=== PATIENT | female | born 1990 | race Caucasian/White ===

== ENCOUNTER 2018-05-07 18:25 | Inpatient (IN) | payer OTHER ==
[2018-05-07] MEDS ORDERED: LIDOCAINE 1% 300 MG/30 ML SDV SC PRN (19:00)
[2018-05-07] MEDS ORDERED: LR 1,000 ML IV PRN (19:00)
[2018-05-07] MEDS ORDERED: OXYTOCIN/RINGERS LACTATE 1,000 ML IV PRN (19:00)
[2018-05-07] MEDS ORDERED: OLIVE OIL 118 ML BTL MISC PRN (19:00)
[2018-05-07] MEDS ORDERED: TERBUTALINE SULFATE 1 MG/ML VIAL IV PRN (19:00)
[2018-05-07] MEDS ORDERED: MISOPROSTOL 200 MCG TAB PR PRN (19:00)
[2018-05-07] MEDS ORDERED: IBUPROFEN 600 MG TAB PO PRN (19:00)
[2018-05-07] MEDS ORDERED: EPSOM SALT 454 GM TP PRN (19:00)
[2018-05-07 19:17] LABS: PLATELET COUNT 205 10^3/uL (150-400)
[2018-05-07] MEDS ORDERED: TERBUTALINE SULFATE 1 MG/ML VIAL ONE (19:38)
[2018-05-07] MEDS ORDERED: OLIVE OIL 118 ML BTL ONE (19:38)
[2018-05-07] MEDS ORDERED: LIDOCAINE 1% 300 MG/30 ML SDV ONE (19:38)
[2018-05-07] MEDS ORDERED: AMMONIA AROMATIC 1 EACH AMP IH ONE (19:38)
[2018-05-07] MEDS ORDERED: MISOPROSTOL 200 MCG TAB ONE (19:39)
[2018-05-07] MEDS ORDERED: OXYTOCIN 10 UNIT/ML VIAL ONE (19:39)
[2018-05-07] MEDS ORDERED: fentaNYL 200 MCG, BUPIVACAINE 0.5% 20 ML in NS 100 ML EP SCH (20:30)
[2018-05-07] MEDS ORDERED: PHENYLEPHRINE HCL 100 MCG/ML SYR IVP PRN (20:48)
[2018-05-07] MEDS ORDERED: ONDANSETRON 4 MG/2 ML VIAL IVP PRN (20:48)
--- NOTE | 2018-05-07 20:48 | PREANESOB ---
Obstetric Pre-Anesthesia Info - General Info Proposed Procedure: labor epidural : 2 Para: 0 SOLO: 05/15/18 Gestational Age: 38 week(s) and 6 day(s) Anesthesia Allergies/Adverse Reactions: Allergy/AdvReac Type Severity Reaction Status Date / Time Sulfa (Sulfonamide Allergy Verified 05/07/18 18:41 Antibiotics) Home Medications: Medication Instructions Recorded Ferrous Sulfate [Iron] 85 mg PO 05/07/18 Vit27&Calcium/Iron/FA 1 each PO DAILY 05/07/18 [ Rx 1 Tablet (RX)] Visit Medications: Generic Name Dose Route Start Last Admin Trade Name Freq PRN Reason Stop Dose Admin Lactated Ringer's 1,000 mls @ 0 mls/hr 05/07/18 19:00 Lr IV 05/08/18 18:59 PRN PRN SEE PROTOCOL CONDITIONS Protocol Per Protocol Oxytocin/Lactated Ringer's 1,000 mls @ 125 mls/hr 05/07/18 19:00 Pitocin 20 Units/Lr (Premix) IV PRN PRN Post bleeding Fentanyl 200 mcg/ Bupivacaine 100 mls @ 0 mls/hr 05/07/18 20:30 HCl 20 ml/ Sodium Chloride EP 05/17/18 20:29 CONT CECILLE Protocol As Directed Ibuprofen 600 mg 05/07/18 19:00 Motrin PO ONCE PRN post , pain Lidocaine HCl 300 mg 05/07/18 19:00 Lidocaine Hcl 1% SC 11/03/18 18:59 ONCE PRN episiotomy Magnesium Sulfate 454 gm 05/07/18 19:00 Epsom Salt TP 11/03/18 18:59 Q1H PRN perineal discomfort Misoprostol 800 - 1,000 mcg 05/07/18 19:00 Cytotec MS ONCE PRN Vaginal Atony/Bleeding [place] Oil 118 ml 05/07/18 19:00 Sweet Oil MISC 11/03/18 18:59 ONCE PRN perineal massage Terbutaline Sulfate 0.25 mg 05/07/18 19:00 Brethine IV 11/03/18 18:59 ONCE PRN Tachysystole Discontinued Medications Generic Name Dose Route Start Last Admin Trade Name Freq PRN Reason Stop Dose Admin Ammonia (Aromatic Spirit) Confirm 05/07/18 19:38 Ammonia Aromatic Administered 05/07/18 19:39 Dose 1 each IH .STK-MED ONE Lidocaine HCl Confirm 05/07/18 19:38 Lidocaine Hcl 1% Administered 05/07/18 19:39 Dose 300 mg .ROUTE .STK-MED ONE Misoprostol Confirm 05/07/18 19:39 Cytotec Administered 05/07/18 19:40 Dose 1,000 mcg .ROUTE .STK-MED ONE [place] Oil Confirm 05/07/18 19:38 Sweet Oil Administered 05/07/18 19:39 Dose 118 ml .ROUTE .STK-MED ONE Oxytocin Confirm 05/07/18 19:39 Pitocin Administered 05/07/18 19:40 Dose 40 unit .ROUTE .STK-MED ONE Terbutaline Sulfate Confirm 05/07/18 19:38 Brethine Administered 05/07/18 19:39 Dose 1 mg .ROUTE .STK-MED ONE - Vital Signs Height/Weight (Nursing): Height 160.02 cm Weight 77.564 kg - Focused Exam Neck exam: FROM Mallampati Score: Class 2 Mouth exam: normal dental/mouth exam Pulmonary: no respiratory distress Cardiovascular: regular rate and rhythym Labs: 05/07/18 19:00 Patient ABO/Rh O POSITIVE 05/07/18 19:00 - Plan Consent Signed and on Chart: Yes Patient/Guardian Understands and Agrees to Plan: Yes Urgent/Emergent Case: Jose ko completed preop but documented later for safe timely pt care
[2018-05-07] MEDS ORDERED: fentaNYL 2MCG/ML/BUP 0.1% RTU 100 ML EP SCH (21:00)
[2018-05-07] MEDS ORDERED: LR 500 ML IV SCH (21:00)
[2018-05-07] MEDS ORDERED: LR 500 ML IV PRN (22:36)
--- NOTE | 2018-05-07 22:47 | OBPROG ---
Labor Progress Note Assessment/Plan: Assessment: Plan: 05/07/18 22:37 Subjective/Intrapartum Course: 05/07/18 22:46 patient is comfortable with epidural. initial epidural only worked on one side. on further discussion patient has spina bifida. anesthesia placed a thoracic epidural and pain has been well controlled. contractions have spaced since epidural. will augment with pitocin with as needed. status reassuring. bleeding has decreased and is scant. Objective: 05/07/18 19:00 Patient ABO/Rh O POSITIVE 05/07/18 19:00 - SVE Dilation (cm): 5 Effacement (%): 90 Station: -1 Membranes: SROM Amniotic Fluid Color: Clear, Bloody - Contraction Pattern Assessment Current Contraction Pattern: Regular - AP Antepartum Course: 05/07/18 22:49 dated by lmp not consistent with 6 week 3 day ultrasound. negative innatal testing. uncomplicated . most of care with midwives. contractions began afternoon 7/. SROM at home. moderate amount of bleeding. presented to l and d 2 cm Oxytocin Orders Assessment - Pre-Induction/Augmentation Assessment Gestational Age: 38 week(s) and 6 day(s) ICD10 Worksheet Patient Problems: Problems Problem Status Onset Delivery normal Acute Normal labor Acute
[2018-05-07] MEDS ORDERED: OXYTOCIN/RINGERS LACTATE 500 ML IV SCH (23:00)
--- NOTE | 2018-05-07 23:22 | GHP ---
[f rep st] PREOP HISTORY AND PHYSICAL DATE OF ADMISSION: 05/07/2018 ADMISSION DIAGNOSES: 1. Intrauterine at 38 and 6/7 weeks' gestation. 2. Active labor. 3. Vaginal bleeding. HISTORY OF PRESENT ILLNESS: Patient is a 27 -year-old, 2, para 0-0-1-0 , who is 38 and 6/7 weeks' gestation. Her estimated date of confinement is 01/2018 consistent with a 6 week 7 day ultrasound not consistent with her last menstrual period. Patient initiated care at [facility] at 6 weeks' gestation. Patient's has been uncomplicated. She received majority of her care with the midwives. The patient called this evening complaining of contractions increasing in frequency and intensity. She then called back a short time later saying that her water had broken and she was having a moderate amount of vaginal bleeding. Patient and her then presented to the hospital and were evaluated and patient was found to be in early labor. She did have a slightly larger than normal amount of vaginal bleeding, but status has remained reassuring and the bleeding has decreased to an appropriate amount. The patient did arrive in active labor and then requested an epidural. Anesthesia placed epidural and the epidural was only providing pain relief on 1 side. On further questioning, patient reported a history of spina bifida, which had not been mentioned previously, so a thoracic epidural was placed without difficulty by Anesthesia. Patient is now receiving good pain relief. MEDICAL HISTORY: Significant for spina bifida as described above. ALLERGIES: Seasonal allergies. Sulfa, which causes hives. MEDICATIONS: Flonase, Claritin, vitamins, DHA, and iron. SURGICAL HISTORY: Tonsillectomy and adenoidectomy, and esophageal dilation. SOCIAL HISTORY: Patient is . She denies tobacco, alcohol, or drug use. FAMILY MEDICAL HISTORY: Significant history of a family history of colon cancer. OBSTETRIC/GYNECOLOGIC HISTORY: Menarche age 11, irregular periods lasting 5 days. She is a 2, para 0-0-1-0 in 2012. She had a voluntary termination of . Current has been uncomplicated. Patient denies any history of any abnormal Pap smears or history of sexually transmitted diseases. REVIEW OF SYSTEMS: A 10-point review of systems is negative with exception of the above-mentioned pertinent positives. She has positive movement. She had positive loss of fluid. Positive vaginal bleeding. She denies any headache , changes in vision, nausea, vomiting, fevers, or chills. PHYSICAL EXAMINATION: VITAL SIGNS: Stable. GENERAL APPEARANCE: Alert and oriented x3. PSYCH: Appropriate affect. MUSCULOSKELETAL: Grossly intact. NECK: Mobile and supple. HEART: Rate is regular, regular. LUNGS: Clear to auscultation bilaterally. ABDOMEN: Gravid, nondistended, nontender. EXTREMITIES: Reveal no calf tenderness or edema. PELVIC: She was 2 cm dilated , 80% effaced, and -2 station on arrival. is in the vertex presentation. She is having regular contractions and heart tracing is charted as category 1. LABS: Blood type O positive. Antibody screen negative. Rubella immune. GBS negative. HBsAg negative. HIV negative. Her 50 g glucose was 123. ASSESSMENT AND PLAN: A 27 -year-old 2, para 0-0-1-0, who is 38 and 6/7 weeks' gestation, who is in active labor. She has received an epidural and will be augmented as needed. /[id number]/MODL MTDD
[2018-05-08] MEDS ORDERED: HYDROCORTISONE 0.5% CREAM TP PRN (00:30)
[2018-05-08] MEDS ORDERED: SIMETHICONE 80 MG TAB CHEW PO PRN (00:30)
--- NOTE | 2018-05-08 00:30 | OBDEL ---
Info Type: Vaginal Presentation at Delivery: Vertex L&D Analgesia/Anesthesia Type: Epidural (high thoracic epidural) GBS+: No Intrapartum Medications: Generic Name Dose Route Start Last Admin Trade Name Darryl PRN Reason Stop Dose Admin Oxytocin/Lactated Ringer's 500 mls @ 0 mls/hr 05/07/18 23:00 05/07/18 22:56 Pitocin 30 Units/Lr (Premix) IV 11/03/18 22:59 500 mls CONT CECILLE Administration Protocol Per Protocol Lidocaine HCl 300 mg 05/07/18 19:00 05/07/18 23:57 Lidocaine Hcl 1% SC 11/03/18 18:59 300 mg ONCE PRN Administration episiotomy - Hospital Course Intrapartum: 05/07/18 22:46 patient is comfortable with epidural. initial epidural only worked on one side. on further discussion patient has spina bifida. anesthesia placed a thoracic epidural and pain has been well controlled. contractions have spaced since epidural. will augment with pitocin with as needed. status reassuring. bleeding has decreased and is scant. 05/08/18 00:27 rapid progress to complet. pushed for 4 contractions. Indications for Delivery: Spontaneous Labor Vaginal Delivery - Delivery Provider Delivery Physician/CNM: Perla Mayen - Labor and Delivery Onset of Contractions Date: 05/07/18 Onset of Contractions Time: 16:00 Onset of Contractions Type: Augmented Rupture of Membranes Date: 05/08/18 Rupture of Membranes Time: 18:00 Rupture of Membranes Type: Spontaneous Amniotic Fluid Color: Clear, Bloody Dilation Complete Date: 05/07/18 Dilation Complete Time: 23:26 Placenta Delivery Date: 05/07/18 Placenta Delivery Time: 23:53 Total Hours of Labor: 7 Laceration: 2nd Degree, Other (Specify) (bilateral vaginal sulcus) Repair: 3-0 Vaginal Sponge Count Correct: Yes Vaginal Needle Count Correct: Yes Vaginal Sweep Performed: Yes Delivery Events: None - Medications Labor Augmentation/Induction Methods Used: Pitocin Labor Augmentation/Induction Indication: Other (Specify) (inadequate contractions) [place] Data SOLO: 05/15/18 Gestational Age: 39 week(s) and 0 day(s) [place] Delivery Date: 05/07/18 Delivery Time: 23:45 Sex of : Female Score (1 Min): 8 Score (5 Min): 9 ICD10 Worksheet Patient Problems: Problems Problem Status Onset Normal labor Acute
[2018-05-08] MEDS: HYDROCODONE/APAP 5/325 TAB PO PRN ×5 (05:10→21:25)
[2018-05-08] MEDS: IBUPROFEN 600 MG TAB PO SCH ×3 (06:32→18:22)
[2018-05-08] MEDS: DOCUSATE SODIUM 100 MG CAP PO PRN ×2 (09:08→21:15)
[2018-05-08] MEDS: ACETAMINOPHEN 325 MG TAB PO SCH ×3 (09:10→19:11)
--- NOTE | 2018-05-08 11:23 | OBPP ---
Progress Note Assessment/Plan: Assessment: 27y/o s/p PPD #1 Plan: Routine pp care Plan d/c home tomorrow 05/08/18 11:21 Subjective/ Course: 05/08/18 11:22 Patient is doing well this morning. Reports lochia to be light, pain controlled with oral medication, tolerating regular diet and voiding. is going well. Objective: 05/07/18 19:00 Patient ABO/Rh O POSITIVE 05/07/18 19:00 Temp Pulse Resp BP Pulse Ox 36.6 C 96 16 114/66 95 05/08/18 08:00 05/08/18 08:00 05/08/18 08:00 05/08/18 08:00 05/08/18 08:00 Uterine Position/Fundal Height: Umbilicus -1 Uterine Tone: Firm Physical Exam - Physical Exam EENT: PERRL/EOMI Neck: non-tender Respiratory: normal breath sounds Cardiac/Chest: regular rate, rhythm, edema (sml pedal edema) Abdomen: normal bowel sounds Extremities: normal range of motion Skin: warm/dry Neuro/Psych: alert, normal mood/affect, oriented x 3
[2018-05-08] MEDS: FERROUS SULFATE 325 MG TAB PO SCH (12:22)
--- NOTE | 2018-05-08 21:16 | POSTANESTH ---
Post Anesthetic Evaluation Cardiovascular Status: Normal, Stable Respiratory Status: Normal, Stable Level of Consciousness/Mental Status: Can Participate in Eval Pain Control: Adequate, Prn Tx Ordered Nausea/Vomiting Control: Adequate, Prn Tx Ordered Complications Possibly Related to Anesthesia: None Noted
[2018-05-09] MEDS ORDERED: HYDROCODONE/APAP 5/325 TAB PO SCH
[2018-05-09] MEDS: IBUPROFEN 600 MG TAB PO SCH ×4 (00:22→18:12)
[2018-05-09] MEDS: HYDROCODONE/APAP 5/325 TAB PO PRN ×5 (01:28→22:07)
[2018-05-09] MEDS: ACETAMINOPHEN 325 MG TAB PO SCH ×4 (01:38→22:08)
[2018-05-09] MEDS: FERROUS SULFATE 325 MG TAB PO SCH (09:45)
[2018-05-09] MEDS: DOCUSATE SODIUM 100 MG CAP PO PRN (09:45)
[2018-05-09] MEDS ORDERED: SENNOSIDES/DOCUSATE SODIUM TAB PO PRN (12:58)
[2018-05-09] MEDS ORDERED: POLYETHYLENE GLYCOL 3350 17 GM PKT PO PRN (12:59)
--- NOTE | 2018-05-09 20:21 | OBPP ---
Progress Note Assessment/Plan: Assessment: ppd# 2 s/p with suspected abruption breast feeding hemrrhoids perineal pain Plan: discharge instructions norco rx mood precautions 05/09/18 20:18 Subjective/ Course: 05/08/18 11:22 Patient is doing well this morning. Reports lochia to be light, pain controlled with oral medication, tolerating regular diet and voiding. is going well. 05/09/18 20:19 patient is doing well. pain is well controlled with norco. primary complaint is vaginal/perineal pain. breast feeding is going well. denies headache and changes in vision. baby has bili issues so is not discharged. patient will be discharged to [facility]. no bowel movements yet. Objective: 05/07/18 19:00 Patient ABO/Rh O POSITIVE 05/07/18 19:00 Temp Pulse Resp BP Pulse Ox 36.6 C 96 16 114/66 95 05/08/18 08:00 05/08/18 08:00 05/08/18 08:00 05/08/18 08:00 05/08/18 08:00 Physical Exam - Physical Exam Neck: non-tender, full range of motion, supple Respiratory: chest non-tender, lungs clear, normal breath sounds Cardiac/Chest: normal peripheral pulses, regular rate, rhythm Abdomen: normal bowel sounds, non-tender, other (fundus firm and non tender) Extremities: normal range of motion, non-tender, normal inspection, normal capillary refill Skin: normal color, warm/dry Neuro/Psych: no motor/sensory deficits, alert, normal mood/affect, oriented x 3
--- NOTE | 2018-05-09 20:25 | OBGCSDC ---
General Delivery Information - General Info : 2 Para: 1 Abortions: 0 Type: Vaginal L&D Analgesia/Anesthesia Type: Epidural Admission Date: 05/07/18 Labs: Patient ABO/Rh O POSITIVE 05/07/18 19:00 Hct 36.3 % (38.0-47.0) L 05/07/18 19:00 - Hospital Course Antepartum: 05/07/18 22:49 dated by lmp not consistent with 6 week 3 day ultrasound. negative innatal testing. uncomplicated . most of care with midwives. contractions began afternoon 04/27. SROM at home. moderate amount of bleeding. presented to l and d 2 cm Intrapartum: 05/07/18 22:46 patient is comfortable with epidural. initial epidural only worked on one side. on further discussion patient has spina bifida. anesthesia placed a thoracic epidural and pain has been well controlled. contractions have spaced since epidural. will augment with pitocin with as needed. status reassuring. bleeding has decreased and is scant. 05/08/18 00:27 rapid progress to complet. pushed for 4 contractions. large clot and gush of blood with delivery. suspected partial abruption. 05/09/18 20:24 : 05/08/18 11:22 Patient is doing well this morning. Reports lochia to be light, pain controlled with oral medication, tolerating regular diet and voiding. is going well. 05/09/18 20:19 patient is doing well. pain is well controlled with norco. primary complaint is vaginal/perineal pain. breast feeding is going well. denies headache and changes in vision. baby has bili issues so is not discharged. patient will be discharged to [facility] status. no bowel movements yet. Vaginal - Delivery Provider Delivery Physician/CNM: Perla Mayen - Diagnosis Labor: Augmented Rupture of Membranes Type: Spontaneous Amniotic Fluid Color: Clear, Bloody Laceration: 2nd Degree, Other (Specify) (bilateral vaginal sulcus) Repair: 3-0 Delivery Events: None [place] Data SOLO: 05/15/18 Gestational Age: 39 week(s) and 1 day(s) [place] Delivery Date: 05/07/18 Delivery Time: 23:45 Sex of : Female [place] Weight (gm): 3894 g Score (1 Min): 8 Score (5 Min): 9 Discharge Information - Discharge Information Prescriptions: Hydrocodone/APAP 5/325 [[place] 5/325 (*)] 1 - 2 tab PO Q4HRS PRN #20 tab PRN Reason: Pain, Moderate Condition: Good Instruction/Follow Up: Four Weeks (post mood check ), Six Weeks (post visit)
[2018-05-09 20:31] VITALS: BP 109/74
== END 2018-05-09 22:15 | disposition home or self-care (01) | DRG 774 ==
LOC: FLD 18:25 → FOB 05-08 02:34
PROVIDERS: ADMIT Obstetrics & Gynecology; ATTEND Obstetrics & Gynecology
PROC: 0KQM0ZZ Repair Perineum Muscle, Open Approach (ICD-10-PCS; principal; 2018-05-07)
PROC: 10E0XZZ Delivery of Products of Conception, External Approach (ICD-10-PCS; principal; 2018-05-07)
DX: O45.93 Premature separation of placenta, unspecified, third trimester (principal); O70.1 Second degree perineal laceration during delivery; Q05.5 Cervical spina bifida without hydrocephalus; Z3A.39 39 weeks gestation of pregnancy; Z37.0 Single live birth
CPT/HCPCS: J2370; J2590; J3010; J3105